=== PATIENT | female | born 1945 | race American Indian/Alaskan Native ===

== ENCOUNTER 2017-05-18 05:54 | Day surgery (SDC) | payer MEDICARE ==
[2017-05-15 10:43] VITALS: BMI 22.8
--- NOTE | 2017-05-16 03:02 | HP ---
REASON FOR ADMISSION: Left heart catheterization with possible angioplasty, cardiomyopathy, and abnormal stress test. BRIEF CLINICAL HISTORY: This is a 71-year-old female with a past medical history significant for hypertension, hyperlipidemia; complaining of chest pain, dyspnea on exertion, and chest pain on exertion. Patient underwent noninvasive workup that shows abnormal stress test. Patient is scheduled for elective cardiac cath, possible angioplasty. PAST MEDICAL HISTORY: Positive for hypertension, hyperlipidemia, mitral regurgitation, tricuspid regurgitation, and pulmonary hypertension. REASON FOR CARDIAC WORKUP: As follows: Patient had a stress test, dated 04/28/2015 that shows abnormal myocardial perfusion study, fixed defect anteroseptal ischemia; fixed defect suggestive of previous myocardial injury. Dated 04/28/2015, patient had an echocardiography that shows ejection fraction 20%, [id number] aortic regurgitation, [id number] mitral regurgitation, moderate tricuspid regurgitation, RV systolic pressure of 65. SOCIAL HISTORY: Denies smoking. Denies any history of alcohol abuse. CURRENT MEDICATIONS: The patient is taking Symbicort, aspirin, Valsartan, ranitidine, Lasix, and albuterol. ALLERGIES: NO KNOWN DRUG ALLERGIES. PHYSICAL EXAMINATION: VITAL SIGNS: Height of the patient is 5 feet inches, weight of the patient is 125 pounds, and body mass index 22.7 kg/m2. Rest of the examination: Heart rate 80 and blood pressure 130/80. HEENT: PERRLA intact. NECK: Supple. No carotid bruit or thyromegaly. CHEST: Clear to auscultation. HEART: S1 and S2 regular. ABDOMEN: Soft. EXTREMITIES: Clubbing and cyanosis, negative. IMPRESSION: Abnormal stress test, cardiomyopathy, pulmonary hypertension, mitral and tricuspid regurgitation, aortic regurgitation, hypertension, chronic obstructive pulmonary disease. RECOMMENDATION: We will do left and right heart catheterization. Further recommendations after cardiac catheterization. We will follow with you. We will review the blood workup when it is available. Thank you, Dr. Powell, for providing us the opportunity in taking care of the patient, Deanna Jackson. Dominick Sweeney MD [facility] # [id number]
[2017-05-18 06:48] LABS: BASO # 0.03 K/mm3 (0.0-2.0); BASO % 0.5 % (0.0-3.0); EOS # 0.1 (0.0-0.7); EOS % 1.1 % (1.5-5.0); GRAN # 4.04 (1.4-6.5); GRAN % 71.5 % (50.0-68.0); HEMOGLOBIN 11.4 g/dL (12.0-16.0); LYMPH # 1.1 (1.2-3.4); MEAN CELL VOLUME 78.8 fl (80.0-105.0); MEAN CORPUSCULAR HEMOGLOBIN 25.2 pg (25.0-35.0); MEAN CORPUSCULAR HGB CONC 31.9 g/dl (31.0-37.0); MEAN PLATELET VOLUME 9.1 fl (7.0-11.0); MONO # 0.4 (0.1-0.6); MONO % 6.9 % (1.0-6.0); RBC 4.53 10^6/uL (3.5-6.1); RED CELL DISTRIBUTION WIDTH 18.1 % (11.5-14.5); WHITE BLOOD COUNT 5.7 10^3/ul (4.5-11.0)
[2017-05-18] MEDS ORDERED: Phenylephrine 10 mg/ml Inj ONE (06:57)
[2017-05-18] MEDS ORDERED: Lidocaine 2% Inj (20ml) ONE (06:57)
[2017-05-18] MEDS ORDERED: HEPARIN SODIUM/NS 2,000 ML IV ONE (06:58)
[2017-05-18] MEDS ORDERED: Iohexol 350mgl/ml 50 ML ONE (07:06)
[2017-05-18 07:13] LABS: BLOOD UREA NITROGEN 16 mg/dL (7-21); CALCIUM 9.7 mg/dL (8.4-10.5); GFR AFRICAN-AMERICAN > 60; GFR NON-AFRICAN AMERICAN > 60; HDL CHOLESTEROL 34 mg/dL (29-60)
[2017-05-18 07:18] LABS: INR 1.09 (0.93-1.08); PARTIAL THROMBOPLASTIN TIME 32.1 Seconds (25.1-36.5); PROTHROMBIN TIME 12.6 SECONDS (9.4-12.5)
[2017-05-18] MEDS ORDERED: Potassium Chloride 20 mEq ER Tab PO ONE (07:18)
[2017-05-18] MEDS ORDERED: Iohexol 350 MG/100 ML VIAL ONE (07:21)
[2017-05-18 07:23] LABS: LDL CHOLESTEROL 72 mg/dL (0-129)
[2017-05-18 07:24] VITALS: O2SAT 100
[2017-05-18] MEDS ORDERED: Midazolam 2 MG/2 ML VIAL ONE (07:50)
[2017-05-18] MEDS ORDERED: Eptifibatide 20 mg/10mL Inj IVP ONE (08:30)
[2017-05-18] MEDS ORDERED: Albuterol 0.083% Inhal Sol (2.5 mg/3 mL) UD IH PRN (09:21)
[2017-05-18] MEDS ORDERED: Sodium Chloride 0.9% 1,000 ML IV SCH ×2 (09:30→10:45)
[2017-05-18 10:17] VITALS: RESP 18
[2017-05-18 12:48] LABS: BASO # 0.02 K/mm3 (0.0-2.0); BASO % 0.3 % (0.0-3.0); EOS % 0.3 % (1.5-5.0); GRAN # 4.49 (1.4-6.5); HEMOGLOBIN 9.9 g/dL (12.0-16.0); LYMPH # 1.2 (1.2-3.4); LYMPH % 20.3 % (22.0-35.0); MEAN CELL VOLUME 79.1 fl (80.0-105.0); MEAN CORPUSCULAR HEMOGLOBIN 24.9 pg (25.0-35.0); MEAN CORPUSCULAR HGB CONC 31.5 g/dl (31.0-37.0); MEAN PLATELET VOLUME 9.1 fl (7.0-11.0); MONO # 0.3 (0.1-0.6); MONO % 5.1 % (1.0-6.0); RBC 3.97 10^6/uL (3.5-6.1); RED CELL DISTRIBUTION WIDTH 17.8 % (11.5-14.5); WHITE BLOOD COUNT 6.1 10^3/ul (4.5-11.0)
[2017-05-18 13:06] LABS: BLOOD UREA NITROGEN 15 mg/dL (7-21); CALCIUM 8.8 mg/dL (8.4-10.5); GFR AFRICAN-AMERICAN > 60; GFR NON-AFRICAN AMERICAN > 60
--- NOTE | 2017-05-18 15:43 | CARD ---
APPROVED REPORT Procedure(s) performed: Complete Heart Catheterization PTCA with Stenting of Mid LAD. HISTORY The patient is a 71 year-old female with a history of : previous RI (> 7 days), most recent EF: 20%. (EF Method: RADIONUCLIDE), chronic lung disease, tobacco history() : The patient is a former smoker , hypertension , dyslipidemia . INDICATION The indication(s) include : positive stress test, chest pain, dyspnea. CASE TECHNIQUE The patient was brought electively to the Cardiac Catheterization Laboratory in a fasting state and was prepped and draped in a sterile manner. The right femoral groin was infiltrated with 2% Lidocaine subcutaneous anesthesia. A 6 Fr x 11 cm Xiomara sheath was inserted into the right femoral artery without difficulty. Coronary angiography was performed using coronary diagnostic catheters. The left coronary system was accessed and visualized with a Diagnostic ,6 Fr JL 4 catheter. The right coronary system was accessed and visualized with a Diagnostic ,5 Fr JR 4 catheter. The left ventricle was accessed and visualized with a 5 Fr Pigtail 145 (Angled) catheter. Left ventricular/Aortic Valve gradient assessed on pullback. Left ventriculogram was performed in [place] projection. Pre-demployment femoral angiogram was performed . Closure device was deployed with a 6 Fr / 7 Fr MynxGrip without any complications. The patient tolerated the procedure well and there were no complications associated with the procedure. Vessel Analysis The patient's coronary anatomy is right dominant. The left main coronary artery is a large size vessel with intimal irregularities and without significant stenosis. The left main bifurcates to the left anterior descending and circumflex. The left anterior descending artery is a medium size vessel with diffuse calcification noted throughout this vessel and with significant stenosis. There is a 80% stenosis in the mid segment. The first diagonal branch is a small size vessel . The second diagonal branch is a small size vessel . The circumflex artery is a medium size vessel with diffuse calcification noted throughout this vessel and without significant stenosis. The first obtuse marginal branch is a medium size vessel with intimal irregularities and without significant stenosis. The right coronary artery is a large size vessel with intimal irregularities and without significant stenosis. The right posterior descending artery is a medium size vessel with intimal irregularities and without significant stenosis. Left Ventricle The left ventricle is moderately enlarged in size with moderately decreased contractility. Ischemic and Non-Ischemic cardiomyopathy. The left ventricular ejection fraction is estimated to be 25%. The left ventricular end diastolic pressure is 25 mmHg. There was no gradient across the aortic valve upon pullback. Right Heart Cath Findings The Right Atrial Pressure is 6 mmHg. The Right Ventricular Pressure is 56/11 mmHg. The Pulmonary Artery Pressure is 56/23 mmHg. mean of 36 The Pulmonary Catheter Wedge Pressure is 22 mmHg. PVR 4.3 Wood units. The cardiac output and index were assessed using thermo dilution. The Cardiac Output is 3.25 L/min. The Cardiac index is 2.01 L/min/m2. PCI Technique Lesion Anticoagulation was achieved with Heparin. Percutaneous coronary intervention was performed on the mid left anterior descending artery segment. The lesion stenosis prior to intervention was 80% with MAYITO flow. A JJ 4.0 ,6 FR Guide Catheter was used to engage the ostium. A Poliglota 182 Interventional Guidewire was used to cross the lesion. BALLOON DILATION A Balloon catheter 2.0 x 10 mm Sprinter RX was inserted and inflated up to 12.00atm for 15seconds. STENT DEPLOYMENT A drug-eluting stent 3.5 x 15 mm Resolute EHSAN was inserted and inflated up to 12.00atm for 15seconds. POST STENT DEPLOYMENT BALLOON DILATION A Balloon catheter 4.0 x 9 mm Sprinter NC was inserted and inflated up to 14.00atm for 11seconds. Final angiography reveals 0 % stenosis with MAYITO 3 flow. Conclusion Single vessel CAD, involving Mid LAD -80% Ischemic and Non Ischemic CMP EF-25%, EDP-25% Successful PTCA with EHSAN of MID LAD Recommendations Cardiac Rehabilitation ReferralDaily ASA with Plavix for at least one year Aggressive Medical TherapyCardiac Risk Reduction Program Add Coreg/Dig/Ramipril / Aldactone / Atorvastatin. Increased lasix to 40 mg po daily. Reassess LV Fx in 3-6 months if remains <35%, consider AICD. CC; Dr. Powell
[2017-05-18 16:21] VITALS: TEMP 98.4
[2017-05-18 16:22] VITALS: BP 122/72; PULSE 74
--- NOTE | 2017-05-18 17:54 | CARD ---
APPROVED REPORT EKG Measurement Heart [id number] <Conclusion> Normal sinus rhythm Voltage criteria for left ventricular hypertrophy Cannot rule out Septal infarct, age undetermined Abnormal ECG
--- NOTE | 2017-05-18 18:07 | CARD ---
APPROVED REPORT EKG Measurement Heart [id number] <Conclusion> Normal sinus rhythm Possible Left atrial enlargement Left ventricular hypertrophy Cannot rule out Septal infarct, age undetermined ST & T wave abnormality, consider inferior ischemia Abnormal ECG
--- NOTE | 2017-05-18 22:58 | CON ---
DATE: HISTORY OF PRESENT ILLNESS: The patient is 71 years old, who was electively scheduled for cardiac cath because of her abnormal stress test that was done on 04/27/2017 that showed fixed mid anteroseptal defect suggestive of previous myocardial injury, fixed inferior defect most likely due to and severe LV dysfunction with diffuse hypokinesia. So, the patient ended up having cardiac cath today and was admitted for further observation. PAST MEDICAL HISTORY: She has significant past medical history for: 1. Hypertension. 2. Hyperlipidemia. 3. History of heavy smoking for more than 50 years. 4. History of mitral regurgitation. 5. Pulmonary hypertension. SOCIAL HISTORY: Heavy smoker for all her life, quit 2 months ago. No history of alcohol use. FAMILY HISTORY: Relevant for father having tuberculosis that he was treated and even the patient was given INH for 6 months. ALLERGIES: SHE IS NOT ALLERGIC TO ANY MEDICATIONS. MEDICATIONS AT HOME: She is on Symbicort, aspirin, valsartan, ranitidine, Lasix and albuterol. REVIEW OF SYSTEMS: Significant for shortness of breath and chest discomfort. PHYSICAL EXAMINATION: GENERAL: Today, she is awake, alert, oriented, communicative. VITAL SIGNS: She is afebrile, pulse 90, respirations 18, blood pressure 131/82. LUNGS: Bilateral diffuse decreased breath sounds. HEART: S1 and S2 audible. ABDOMEN: Soft, nontender. No rebound, no guarding. NEUROLOGIC: The patient is awake, alert, and oriented and able to communicate. LABORATORY DATA: WBC is 5.7, hemoglobin 11.4, hematocrit 35.7, platelets of 235. PT 12.6, INR 1.09. Chemistry: Sodium 144, potassium 3.5, chloride 107, CO2 of 25, BUN 16, creatinine 0.9, blood sugar of 100. ASSESSMENT: 1. Abnormal stress test. 2. Coronary artery disease, status post left anterior descending angioplasty. 3. Hypertension. 4. Hyperlipidemia. 5. Pulmonary hypertension. 6. Diffuse left ventricular dysfunction and hypokinesia. PLAN: The patient has been started on spironolactone, carvedilol, valsartan, aspirin 81 mg daily, Lasix 40 mg daily, atorvastatin 10 mg daily, Plavix 75 daily. The patient will be discharged later on today and will follow up in office in . Tatianna Powell MD [facility] # [id number]
== END 2017-05-18 16:08 | disposition home or self-care (01) ==
LOC: CATH 05:54 → 2RSO 09:40 → CATH 16:08
PROVIDERS: ATTEND Internal Medicine Cardiovascular Disease
DX: I25.10 Atherosclerotic heart disease of native coronary artery without angina pectoris (principal); I25.5 Ischemic cardiomyopathy; I27.20 Pulmonary hypertension, unspecified; I10 Essential (primary) hypertension; I08.3 Combined rheumatic disorders of mitral, aortic and tricuspid valves; E78.5 Hyperlipidemia, unspecified; J44.9 Chronic obstructive pulmonary disease, unspecified; Z87.891 Personal history of nicotine dependence
CPT/HCPCS: 36415; 80048; 80061; 85025; 85175; 85610; 85730; 86850; 86900; 93005; 93460; 99152; 99153; C1713; C1725 ×2; C1760; C1769 ×2; C1874; C1887 ×2; C1894; C2629; C9600; J1327; J1644 ×2; J1940; J2250; J2405; J3010; J7040; Q9967 ×3

== ENCOUNTER 2018-07-22 09:08 | Outpatient (CLI) | payer MEDICARE | END 2018-07-22 09:09 | disposition home or self-care (01) | LOC: RAD 09:08 | DX: R63.4 Abnormal weight loss (principal); R76.11 Nonspecific reaction to tuberculin skin test without active tuberculosis ==

== ENCOUNTER 2018-08-06 09:30 | Outpatient (CLI) | payer MEDICARE | END 2018-08-06 09:31 | disposition home or self-care (01) | LOC: RAD 09:30 ==

== ENCOUNTER 2018-08-25 09:24 | Outpatient (CLI) | payer MEDICARE | END 2018-08-25 09:25 | disposition home or self-care (01) | LOC: CARDIO 09:24 | DX: I10 Essential (primary) hypertension (principal); R07.89 Other chest pain ==